=== PATIENT | female | born 1950 | race Caucasian/White ===

== ENCOUNTER 2022-02-05 13:45 | Outpatient (RCR) | payer MEDICARE, OTHER, SELFPAY | END 2022-09-23 15:56 | disposition home or self-care (01) | PROVIDERS: PCP Family Medicine; Visit Provider Family Medicine | DX: M62.81 Muscle weakness (generalized) (principal); Z51.89 Encounter for other specified aftercare | CPT/HCPCS: 97110 ==

== ENCOUNTER 2022-06-10 13:07 | Outpatient (CLI) | payer MEDICARE, OTHER, SELFPAY ==
--- NOTE | 2022-06-10 13:20 | CRLHL7_ITS ---
For Patients: As a result of the Cures Act, medical imaging exams and procedure reports are released immediately into your electronic medical record. You may view this report before your referring provider. If you have questions, please contact your health care provider. BILATERAL SCREENING MAMMOGRAM WITH COMPUTER-AIDED DETECTION AND TOMOSYNTHESIS TECHNIQUE: CC, MLO and implant-displaced views were obtained. These mammographic images have been obtained using full-field digital technique. These mammographic images were interpreted with the benefit of computer-aided detection. Breast tomosynthesis was used in this interpretation. COMPARISON FILM: 03/14/21, 03/13/19, 03/08/18. FINDINGS: The breasts are heterogeneously dense, which may obscure small masses. IMPRESSION: There is no radiographic evidence for malignancy. ASSESSMENT: BI-RADS Category 2: Benign RECOMMENDATION: Routine screening mammogram in 1 year. A lay language report of this examination will be provided to the patient. LUISITO ADAMS M.D. Diagnostic Radiologist [email or web address] Transcribed: 06/11/2022, 2:[address]/Dictated by: Luisito Adams MD @ 06/11/2022 11:19:[address]/Dictated by: Luisito Adams MD @ 06/11/2022 11:19:00 AM (Electronically Signed)
== END 2022-06-10 13:08 | disposition home or self-care (01) ==
LOC: MAMMO 13:08
PROVIDERS: PCP Family Medicine; Visit Provider Family Medicine
DX: Z12.31 Encounter for screening mammogram for malignant neoplasm of breast (principal); R92.2 Inconclusive mammogram
CPT/HCPCS: 77063; 77067

== ENCOUNTER 2022-07-06 16:00 | Observation (INO) | payer MEDICARE, OTHER, SELFPAY ==
--- NOTE | 2022-07-06 12:16 | W.ANESCHARGE ---
Anesthesia Charges Start Date/Time Anesthesia Start Date: 07/06/22 Anesthesia Start Time: 12:29 Stop Date/Time Anesthesia Stop Date: 07/06/22 Anesthesia Stop Time: 13:19 Summary Extremes of Age - Over 70 or under 1: MDA
--- NOTE | 2022-07-06 13:29 | W.ANESCHARGE ---
Anesthesia Charges Start Date/Time Anesthesia Start Date: 07/06/22 Anesthesia Start Time: 12:29 Stop Date/Time Anesthesia Stop Date: 07/06/22 Anesthesia Stop Time: 13:19
--- NOTE | 2022-07-06 13:55 | CRLHL7_ITS ---
For Patients: As a result of the Century Cures Act, medical imaging exams and procedure reports are released immediately into your electronic medical record. You may view this report before your referring provider. If you have questions, please contact your health care provider. Indication: Aspiration Comparison: None available. Technique: Single AP view chest Findings: There is hyperinflation and chronic interstitial change. Calcified radiopaque breast implants project over the lung bases somewhat limiting evaluation of the lower lobes. There is suggestion of masslike consolidation within the peripheral left lung base which may represent a pulmonary mass lesion versus developing infiltrate. There is no pneumothorax or pleural effusion. The cardiomediastinal silhouette is within normal limits. The bony thorax is grossly intact. Impression: Hyperinflation and chronic interstitial changes with somewhat limited evaluation of the lower lobes due to calcified breast implants. Suggestion of masslike consolidation in the left lung base which could represent a developing infiltrate; however, a pulmonary mass lesion is difficult to exclude and further evaluation with CT is recommended if there is persistent clinical concern. Dictated by Saeed Mcneill MD @ 07/06/2022 2:25:49 PM (Electronically Signed)
--- NOTE | 2022-07-06 14:00 | P.EN_ITS ---
Chart Event Note Date Seen: 07/06/22 Chart Event Note: Patient underwent surveillance colonoscopy today with mac anesthesia. Secondary to agitation she received increased sedation which resulted in her having copious secretions and decreasing her oxygen saturation to 86%. The secretions were suctioned promptly and the procedure was paused and the scope withdrawn. The patient was supported by anesthesia staff with jaw thrust and supplemental oxygen until she was more awake. Please see anesthesia note for details. Vital signs and oxygen saturation remained normal and the patient was comfortable and so the procedure was restarted and continued without incident. The patient received minimal additional sedation. In the recovery area she complained of throat soreness and was noted to have oxygen saturations in the mid 90s off of oxygen which is what her oxygen saturation was on presentation. When she fell asleep, however her oxygen level would dip into the high 80s. Auscultation of her lungs revealed clear lungs on the right. On the left she had deep inspiratory crackles with some expiratory w heezes noted diffusely. The patient denied shortness of breath. Chest x-ray was obtained and shows likely a left middle lobe infiltrate versus possible mass. A nebulizer was administered with improvement in her oxygen saturation. Upon further questioning, she does not have anybody staying with her tonight. Because of this I do not feel that it is safe to discharge her home. We discussed admission for observation in the hospital. I will start antibiotics though I explained to the patient that aspiration pneumonitis does not always turn into pneumonia, however given her history of COPD and symptoms, I think antibiotics are warranted. I discussed the patient with the hospitalist as well as the anesthesia department.
[2022-07-06] MEDS: ALBUTEROL SULFATE 2.5 MG/3 ML VIAL.NEB NEB (14:38)
[2022-07-06 15:27] VITALS: BP 153/85; PULSE 108; RESP 24; TEMP 36.4; O2SAT 88; O2SAT 90; BMI 25.6
[2022-07-06 15:56] VITALS: BP 153/85; PULSE 102; RESP 24; TEMP 36.6; O2SAT 90
[2022-07-06 16:00] VITALS: O2SAT 90
[2022-07-06 16:24] LABS: HCO3 VBG 28 mmol/L (21-28); PCO2 VBG 48 mmHG (40-50); PO2 VBG 25.6 mmHG (25-47); pH VBG 7.379 (7.32-7.43)
[2022-07-06 16:30] LABS: Basophils Percent Auto 0.2 % (0.0-3.0); Eosinophils Percent Auto 0.1 % (0.0-7.0); Hematocrit 43.4 % (33.0-51.0); Hemoglobin* 14.3 gm/dL (12.0-16.0); Immature Granulocytes Pct Auto 0.2 %; Lymphocytes Percent Auto 6.2 % (20-44); Mean Corpuscular HGB Conc 33 gm/dL (32-36); Mean Corpuscular Hemoglobin 29 pg (26-34); Mean Corpuscular Volume 87 fL (80-100); Monocytes Percent Auto 4.3 % (0.0-11.0); Platelet Count* 221 K/uL (140-440); RDW Coefficient of Variation % 13.9 % (11.5-15.5); Red Blood Count 4.98 m/uL (4.00-5.20); White Blood Count* 11.67 K/uL (4.50-11.00)
[2022-07-06 16:31] LABS: Slide Review Reflex No
[2022-07-06 16:40] LABS: Chloride* 107 mmol/L (96-114); Sodium* 141 mmol/L (135-149)
[2022-07-06 16:41] LABS: Albumin* 4.2 g/dL (3.3-5.0); Potassium* 4.1 mmol/L (3.6-5.1)
[2022-07-06 16:44] LABS: Alanine Aminotransferase* 19 U/L (4-35); Alkaline Phosphatase* 92 U/L (40-150); Aspartate Amino Transferase* 40 U/L (12-35); Bilirubin Total* 0.6 mg/dL (0.1-1.5); Blood Urea Nitrogen* 12 mg/dL (7-30); Carbon Dioxide* 26 mmol/L (20-32); Creatinine* 0.7 mg/dL (0.5-1.5); Est. Creatinine Clearance* 41.45; Estimated Glomerular Filt Rate 91 ml/min; Glucose* 97 mg/dL (60-115); Total Protein* 6.7 g/dL (6.0-8.3)
[2022-07-06 16:45] LABS: Calcium* 9.9 mg/dL (8.4-10.6)
[2022-07-06 16:47] LABS: C Reactive Protein* 1.3 mg/dL (0.5-1.0)
[2022-07-06] MEDS: PANTOPRAZOLE SODIUM 40 MG INJ IVP (17:27)
[2022-07-06] MEDS: PIPERACILLIN/TAZOBACTAM 3.375 GM in 0.9 % SODIUM CHLORIDE Mini-bag 100 ML IVPB ×2 (17:28→22:11)
--- NOTE | 2022-07-06 17:34 | P.IMHP_ITS ---
Hospitalist- H&P: HPI History of Present Illness Date Seen: 07/06/22 Chief complaint: History of colonic polyps Narrative: Radha Bronson is a 72 year old female admitted to the hospital from endoscopy clinic due to concerns about aspiration pneumonia. Patient underwent colonoscopy today with Dr. Camarena. No apparent complications except during the time she was sedated with anesthesia she had copious secretions requiring suctioning. After the procedure she appear to need some oxygen, especially when she fell asleep. She was noted to have crackles in her left lung cornejo after the surgery as well. Chest x-ray showed an infiltrate in the left lung mid field. This was suspected to be due to an aspiration event. Patient has underlying COPD as well. Since waking up from anesthesia she reports that she has had a sense of feeling hot and cold. She is quite diaphoretic and did saturate her gown with sweat.. Before her colonoscopy today she reports she was generally doing well. Review of Systems Narrative: No other recent illness. [facility] Medical History Chronic gastroesophageal reflux disease Chronic obstructive pulmonary disease Depression Dyslipidemia Fuchs' corneal dystrophy Gross hematuria (2013) History of colonic polyps History of vitamin D deficiency Urolithiasis Surgical History History of breast augmentation (1995) History of cataract extraction (09/2017) History of colonoscopy (06/07/19) History of cornea transplant (09/2017) History of cystoscopy (2014) History of hysterectomy with bilateral oophorectomy (1994) Normal cystoscopy (08/2016) Family History Son Alcoholism Mother Anxiety disorder Paternal Grandmother Breast cancer, Onset Age: 50 Sister Cervical cancer Myocardial infarction, Onset Age: 54 Aunt Heart disease Uncle Heart disease Other Dementia Thyroid disease Social History (Updated 07/06/22 @ 17:48 by Jae Villalpando MD) Narrative: Lives alone at [facility]. , retired from office job, 3 kids, has patience [place] ex-smoker- hx 40 pack years does not drink alcohol exercise involving walking- walks dog 20-25 min daily Highest level of school completed/degree received: GED or equivalent Smoking Status: Former smoker How often do you have a drink containing alcohol: never AUDIT-C Alcohol total score: 0 Caffeine: Yes (coffee) Little interest or pleasure in doing things: several days Feeling down, depressed, or hopeless: several days service: No Meds Home Medications and Allergies Home Medications Medication Instructions Recorded Confirmed Type albuterol sulfate 90 mcg/actuation 2 puff inhalation Q4-6H PRN 12/16/21 07/06/22 History aerosol inhaler cyclosporine 0.05 % eye drops 1 drp ophthalmic (eye) BID 12/16/21 07/06/22 History multivitamin with minerals 1 tab PO QDAY 12/16/21 07/06/22 History (Hair,Skin and Nails tablet) polyvinyl alcohol 1.4 % eye drops 1 drp ophthalmic (eye) Q4H PRN 12/16/21 07/06/22 History prednisolone acetate 1 % eye 1 drp ophthalmic (eye) DAILY 12/16/21 07/06/22 History drops,suspension fluticasone fur. 100 mcg-umeclid 1 inh inhalation QDAY 12/17/21 07/06/22 History 62.5 mcg-vilant 25 mcg inhalat.powder (Trelegy Ellipta) Allergies Allergy/AdvReac Type Severity Reaction Status Date / Time latex Allergy Intermediate Rash Verified 06/24/22 14:34 Dairy AdvReac Intermediate muscle and Uncoded 06/24/22 14:34 joint pain Exam Narrative: Exam Narrative: She is alert and appears in no distress. She gives her own history. She does have a fairly large emesis of green tinged clear fluid when I am examining her. Eyes are normal. Oropharynx normal. Neck is supple without mass or adenopathy. Respirations with diminished breath sounds on the right but otherwise clear without wheezing. On the left she has crackles diffusely anteriorly and posteriorly. Cardiovascular: S1, S2, regular rate and rhythm. No murmur gallop or rub. Abdomen: Bowel sounds active. Abdomen is soft without tenderness or mass. She does get nauseated during the abdominal exam. Extremities with intact pulses and sensation. Good capillary refill in good perfusion. Const: Vital Signs, click to edit/add: Vital Signs - 24 hr 07/06/22 15:27 07/06/22 15:27 07/06/22 15:56 Temperature 97.6 F 97.8 F Pulse Rate [Pulse Oximeter] 108 H 102 H Respiratory Rate 24 24 24 Blood Pressure [Le ft Arm] 153/85 H 153/85 H Pulse Oximetry 90 88 90 Oxygen Delivery Me thod Room Air Room Air Room Air Documenting provider has reviewed patient's vital signs: yes Hospitalist - H&P: Result Labs Labs: Short CBC 07/06/22 Range/Units 16:18 WBC 11.67 H (4.50-11.00) K/uL Hgb 14.3 (12.0-16.0) gm/dL Hct 43.4 (33.0-51.0) % Plt Count 221 (140-440) K/uL BMP 07/06/22 16:18 Sodium 141 Potassium 4.1 Chloride 107 Carbon Dioxide 26 BUN 12 Creatinine 0.7 Glucose 97 Calcium 9.9 Liver Function 07/06/22 Range/Units 16:18 Total Bilirubin 0.6 (0.1-1.5) mg/dL AST 40 H (12-35) U/L ALT 19 (4-35) U/L Alkaline Phosphatase 92 (40-150) U/L Albumin 4.2 (3.3-5.0) g/dL Assessment and Plan Assessment and plan (1) Aspiration into lower respiratory tract: Problem comment: Abnormal lung exam, hypoxia, abnormal chest x-ray all likely represent aspiration into the left lung cornejo. Because she has significant symptoms of illness will treat with antibiotics Status: Acute (2) Chronic gastroesophageal reflux disease: Status: Chronic (3) Chronic obstructive pulmonary disease: Problem comment: did see pump assembler, stage 2, Trelegy Status: Chronic (4) Vomiting: Problem comment: Continue to assess. Probably related to acute illness but may have other issues contributing to vomiting. Status: Acute Plan Admit for IV antibiotics, IV fluids, antiemetics, monitoring of cardio respiratory status. Total time spent today is 70 minutes, 45 minutes in coordination of care and discussing with patient other providers ongoing evaluation management of aspiration pneumonia
[2022-07-06] MEDS: IPRAT-ALBUT 0.5-2.5 MG/3 ML NEB 1 NEB IH (18:51)
[2022-07-06] MEDS: LACTATED RINGERS 1000 ML 500 ML IV (18:51)
[2022-07-06] MEDS: SERTRALINE 100 MG TABLET PO (18:51)
[2022-07-06 19:00] VITALS: BP 115/67; PULSE 115; RESP 20; TEMP 37.9; O2SAT 88
--- NOTE | 2022-07-06 19:53 | PC.NURSE ---
Nursing Care Hours: [id number] Pt this shift arrived from same day surgery after a colonoscopy where she is suspected to have aspirated during the procedure. Pt does state she has frequent heart burn and during assessment with hospitalist, pt vomited about 100ml clear-green bile. Immediately after pt had to use restroom for a loose BM. Audible wet breath sounds heard without stethoscope, coarse crackles to L lung, diminished base, clear R lung. spO2 remains above 88% on RA. Alert, oriented, and pleasant. IV from [facility] in R AC red and irritated, dc'd and new IV inserted R wrist with one attempt. Chicken broth ordered.
[2022-07-06] MEDS: SODIUM CHLORIDE 0.9 % (FLUSH) 10 ML SYRINGE 5 ML IVF (22:12)
[2022-07-06] MEDS: BENZOCAINE/MENTHOL 1 EACH LOZENGE MUCOUS MEM (22:12)
[2022-07-06 23:00] VITALS: BP 116/59; PULSE 116; RESP 18; TEMP 37.5; O2SAT 86
[2022-07-06] MEDS: LACTATED RINGERS 1000 ML 1,000 ML 125 ML IV (23:12)
[2022-07-07] VITALS: O2SAT 86
[2022-07-07] MEDS: IPRAT-ALBUT 0.5-2.5 MG/3 ML NEB 1 NEB IH ×3 (00:15→11:33)
--- NOTE | 2022-07-07 01:34 | PC.NURSE ---
Primary nurse Teresa has updated [facility] telehealth with current vital signs and oxygen sats 85-89% RA. Boiler House Operator discussed patient flagging for sepsis with Wilbur. Continue with current antibiotic orders at this time and no new orders.
[2022-07-07 02:59] VITALS: BP 115/62; PULSE 112; RESP 16; TEMP 37.5; O2SAT 91
[2022-07-07] MEDS: PIPERACILLIN/TAZOBACTAM 3.375 GM in 0.9 % SODIUM CHLORIDE Mini-bag 100 ML IVPB ×2 (04:24→09:57)
--- NOTE | 2022-07-07 05:19 | PC.NURSE ---
END OF SHIFT NOTE: PT PLEASANT AND COOPERATIVE. PT DENIES CP, SOB, N/V. AMBULATES INDEPENDENTLY/SBA WHEN REQUESTED. HR TACHY, ELEVATED TEMP 99.5-100.3, BP 115-116/59-67, RR 16-20, SPO2 85-88%, 90% ON 1L NC.?PT TRIGGERING SEPSIS; CHARGE NURSE AND JD UPDATED; NO NEW ORDERS. PT PLACED ON 1L O2 VIA NC TO MAINTAIN SATS >88%. PT A&O x4. PT FEELING BETTER THIS MORNING AFTER REST.
[2022-07-07 06:57] LABS: Chloride* 109 mmol/L (96-114)
[2022-07-07 06:58] LABS: Potassium* 3.9 mmol/L (3.6-5.1); Sodium* 140 mmol/L (135-149)
[2022-07-07 07:00] LABS: Creatinine* 0.8 mg/dL (0.5-1.5); Est. Creatinine Clearance* 41.45; Estimated Glomerular Filt Rate 78 ml/min
[2022-07-07 07:01] LABS: Blood Urea Nitrogen* 10 mg/dL (7-30); Carbon Dioxide* 27 mmol/L (20-32); Glucose* 90 mg/dL (60-115)
[2022-07-07 07:02] LABS: Calcium* 9.4 mg/dL (8.4-10.6)
[2022-07-07 07:04] LABS: C Reactive Protein* 6.7 mg/dL (0.5-1.0)
[2022-07-07 07:45] VITALS: BP 122/58; PULSE 105; RESP 18; TEMP 37; O2SAT 91
--- NOTE | 2022-07-07 07:53 | CRLHL7_ITS ---
For Patients: As a result of the Century Cures Act, medical imaging exams and procedure reports are released immediately into your electronic medical record. You may view this report before your referring provider. If you have questions, please contact your health care provider. INDICATION: Follow up aspiration COMPARISON: July 06, 2022 TECHNIQUE: Single view of the chest was acquired FINDINGS: TUBES AND LINES: None. HEART AND MEDIASTINUM: The heart size is normal. The mediastinal contour appears normal for patient age. LUNGS AND PLEURAL SPACES: Airspace disease noted primarily l in the eft midlung and left base. Most of the opacity overlying the right base appears to be breast attenuation.Similar overall appearance to the prior study OSSEOUS STRUCTURES: Age-appropriate appearance. No acute focal finding. IMPRESSION: Airspace disease noted primarily in the left mid lung and the left base. Most of the opacity overlying the right base appears to be breast attenuation rather than air space disease. Similar overall appearance to the prior study Dictated by Junior Tristan MD @ 07/07/2022 8:22:08 AM (Electronically Signed)
[2022-07-07 08:00] VITALS: O2SAT 91
[2022-07-07] MEDS: SERTRALINE 100 MG TABLET PO (09:55)
[2022-07-07] MEDS: FAMOTIDINE 20 MG TABLET PO (09:55)
--- NOTE | 2022-07-07 10:31 | PM.IMPN1 ---
Progress Note: A&P Assessment and plan (1) Aspiration into lower respiratory tract: Problem details: hypoxic overnight (may be a baseline with her COPD hx); off oxygen all day. has rec'd zosyn - could go home on Augmentin/nebs. Status: Acute (2) Depression: Problem details: stable Status: Chronic (3) Dyslipidemia: Problem details: stable Status: Chronic (4) Chronic obstructive pulmonary disease: Problem details: did see assistant store manager operations, stage 2, Trelegy Status: Chronic Subjective Date Seen: 07/07/22 Interval history: HOSPITALIST DISCHARGE SUMMARY ATTENDING PHYSICIAN: Isis Carroll MD FINAL DIAGNOSIS: Aspiration event during colonoscopy 07/06/2022 Left middle lobe and left lower lobe pneumonitis COPD HOSPITAL FOLLOWUP ISSUES: Repeat chest x-ray in 2-4 weeks to assure clearance of the left middle lobe and left lower lobe findings REFERRALS WHILE ADMITTED: None REFERRALS AFTER DISCHARGE: None BRIEF HOSPITAL COURSE: Radha aspirated during her colonoscopy for routine surveillance on 07/06/2022. She was kept overnight very to hypoxia, living alone. She needed about 1 L of nasal cannula oxygen overnight. However we wonder if there is some baseline nocturnal hypoxia related to her COPD. During hospital day 2 she was able to ambulate the halls while her sats did drop to a low of 89% they came right back up with rest and with a nebulizer stayed between 94 96%. She was afebrile at discharge. She was tolerating a regular diet. She had received several doses of Zosyn. We are transitioning her to oral Augmentin. I am also a clipping her with a nebulizer and DuoNebs for the next few days as this has seemed very beneficial for her. SUBSTANTIVE NOTATIONS ON IMAGING, LAB, MICROBIOLOGY/PATHOLOGY STUDIES: Chest x-ray on 07/07 22 Airspace disease noted primarily in the left mid lung and the left base. Most of the opacity overlying the right base appears to be breast attenuation rather than air space disease. Similar overall appearance to the prior study DISCHARGE MEDICATIONS: See Reconciled list - SIGNIFICANT CHANGES: augmentin course nebulizer added for dyspnea and wheeze REVIEW OF SYSTEMS No new chest pain or dyspnea Pain controlled No voiding difficulties Tolerating diet challenge PHYSICAL EXAM: CONSTITUTIONAL: Alert. Insightful. VITAL SIGNS: see record. HEENT: Normocephalic, atraumatic. PERRL, EOMI, conjunctivae pink, no scleral icterus. Ears and nose externally normal. Pharynx normal. NECK: No JVD. No carotid bruit, no thyromegaly, no adenopathy. CHEST: Left lower lung cornejo reveal some soft crackles but otherwise there was no wheezing. HEART: S1 and S2 normal. Edema ABDOMEN: Soft, nontender. Normal bowel sounds. MUSCULOSKELETAL: No gross joint deformity or swelling. NEURO: Cranial nerves intact. Grossly intact. No asymmetric findings. SKIN: No rashes, petechiae, concerning changes PSYCHIATRIC: Mood euthymic. DISPOSITION: Patient is also requesting discharge secondary to dog being alone in her apartment and she wants to check on her dog. She also has a lot of supportive friends and neighbors. Precautions for leaving were discussed, patient is agreeable to discharge. Time spent on discharge 37 minutes. Previously earlier in the day: Daily Progress Note - Hospital Medicine Day #: 1 CC: aspiration event during colonoscopy 07/06/22 ZOSYN day 2 OVERNIGHT UPDATES FROM STAFF & MED, LAB, IMAGING UPDATES Objective: Vitals: see above Lungs: Clear. Cardiac: S1S2. Disposition/Potential discharge - Likely to return to previous living situation. Total time is 35 minutes with greater than 50% spent in counseling and coordination of care. T-max 100.3? last evening. Current temperature 99.5? Blood pressure 115/62 Pulse 112 she has been tachycardic since her arrival yesterday afternoon at 3:30 pm Respiratory rate though is only 16. Pulse ox 91% Overnight she dipped to 86% She is currently on 1 L nasal cannula oxygen Her leukocytosis yesterday was 11.67, this was not redrawn this morning. Her CRP is up trending from 1.3-6.7. Her electrolytes and renal function are normal. Her chest x-ray this morning shows about the same findings with left middle lobe lower lobe infiltrate likely related to her aspiration event yesterday during her colonoscopy. She remains on Zosyn There were no blood cultures drawn Exam Const: Vital Signs, click to edit/add: Vital Signs - 24 hr 07/06/22 15:27 07/06/22 15:27 07/06/22 15:56 Temperature 97.6 F 97.8 F Pulse Rate [Pulse Oximeter] 108 H 102 H Respiratory Rate 24 24 24 Blood Pressure [Le ft Arm] 153/85 H 153/85 H Pulse Oximetry 90 88 90 Oxygen Delivery Me thod Room Air Room Air Room Air Oxygen Flow Rate 07/06/22 16:00 07/06/22 19:00 07/06/22 23:00 Temperature 100.3 F H Pulse Rate [Pulse Oximeter] 115 H 116 H Respiratory Rate 20 18 Blood Pressure [Le ft Arm] 115/67 Pulse Oximetry 90 88 Oxygen Delivery Me thod Room Air Oxygen Flow Rate 07/06/22 23:00 07/07/22 00:00 07/07/22 02:59 Temperature 99.5 F 99.5 F Pulse Rate [Pulse Oximeter] 116 H 112 H Respiratory Rate 18 16 Blood Pressure [Le ft Arm] 116/59 L 115/62 Pulse Oximetry 86 L 86 L 91 Oxygen Delivery Me thod Room Air Nasal Cannula Oxygen Flow Rate 1 Labs Labs: Laboratory Results - last 24 hr 07/06/22 07/06/22 07/06/22 16:18 16:18 16:18 WBC 11.67 H RBC 4.98 Hgb 14.3 Hct 43.4 MCV 87 MCH 29 MCHC 33 RDW Coeff of Nargis 13.9 Plt Count 221 Neut % (Auto) 89.0 H Lymph % (Auto) 6.2 L Donley % (Auto) 4.3 Eos % (Auto) 0.1 Baso % (Auto) 0.2 Neut # (Auto) 10.40 H Lymph # (Auto) 0.70 L Donley # (Auto) 0.50 Eos # (Auto) 0.00 Baso # (Auto) 0.00 VBG pH 7.379 VBG pCO2 48 VBG pO2 25.6 VBG HCO3 28 Sodium 141 Potassium 4.1 Chloride 107 Carbon Dioxide 26 BUN 12 Creatinine 0.7 Estimated Creat Clear 41.45 Estimated GFR 91 Glucose 97 Lactate 1.0 Calcium 9.9 Total Bilirubin 0.6 AST 40 H ALT 19 Alkaline Phosphatase 92 C-Reactive Protein 1.3 H Total Protein 6.7 Albumin 4.2 07/07/22 05:55 WBC RBC Hgb Hct MCV MCH MCHC RDW Coeff of Nargis Plt Count Neut % (Auto) Lymph % (Auto) Donley % (Auto) Eos % (Auto) Baso % (Auto) Neut # (Auto) Lymph # (Auto) Donley # (Auto) Eos # (Auto) Baso # (Auto) VBG pH VBG pCO2 VBG pO2 VBG HCO3 Sodium 140 Potassium 3.9 Chloride 109 Carbon Dioxide 27 BUN 10 Creatinine 0.8 Estimated Creat Clear 41.45 Estimated GFR 78 Glucose 90 Lactate Calcium 9.4 Total Bilirubin AST ALT Alkaline Phosphatase C-Reactive Protein 6.7 H Total Protein Albumin
[2022-07-07 10:46] LABS: Basophils Absolute Auto 0.04 K/uL (0.00-0.30); Basophils Percent Auto 0.4 % (0.0-3.0); Eosinophils Absolute Auto 0.01 K/uL (0.00-0.50); Eosinophils Percent Auto 0.1 % (0.0-7.0); Hematocrit 39.1 % (33.0-51.0); Hemoglobin* 12.8 gm/dL (12.0-16.0); Immature Granulocytes Abs Auto 0.01 K/uL (0.00-0.30); Immature Granulocytes Pct Auto 0.1 %; Lymphocytes Percent Auto 15.1 % (20-44); Mean Corpuscular HGB Conc 33 gm/dL (32-36); Mean Corpuscular Hemoglobin 29 pg (26-34); Mean Corpuscular Volume 88 fL (80-100); Neutrophils Percent Auto 77.3 % (42.0-72.0); Platelet Count* 211 K/uL (140-440); RDW Coefficient of Variation % 14.3 % (11.5-15.5); Red Blood Count 4.47 m/uL (4.00-5.20); White Blood Count* 10.46 K/uL (4.50-11.00)
[2022-07-07 10:59] LABS: Slide Review Reflex No
[2022-07-07 11:13] LABS: Procalcitonin* 0.38 ng/mL (<0.50)
[2022-07-07 11:13] LABS: Procalcitonin* 0.06 ng/mL (<0.50)
--- NOTE | 2022-07-07 12:22 | PC.NURSE ---
shift note: ambulated pt in ahuja approx 200ft. pt sats monitored while ambulating. start of activity sats 90-91%RA, HR =105. As pt ambulated and talked lowest sats 88% on RA with highest HR 112. Pt denied sob or chest pain. Pt did have some noted sob at the end of ambuation. Dr. Carroll notified
[2022-07-07 12:29] VITALS: RESP 18; TEMP 37
--- NOTE | 2022-07-07 14:00 | PM.EN ---
Chart Event Note Chart Event Note: Patient gets diarrhea from Augmentin, requesting a different antibiotic upon discharge. Changed to Moxifloxacin, sent to preferred pharmacy.
--- NOTE | 2022-07-07 14:02 | P.GSPN_ITS ---
Subjective Subjective Date Seen: 07/07/22 Interval history: Radha feels much better today. She states that she continues to feel short of breath. She has been up ambulating and off of oxygen. She told me that she has significant issues with reflux. She feels as though it has been worse since she moved to [place] and that it is may be related to weight gain. She has not had an upper endoscopy. She does take an H2 jackson daily but this is no longer helping. Exam Narrative: Exam Narrative: General: No acute distress Respiratory: Breathing nonlabored on room air. Patient still with crackles on the left. Productive cough noted. Const: Vital Signs, click to edit/add: Vital Signs - 24 hr 07/06/22 15:27 07/06/22 15:27 07/06/22 15:56 Temperature 97.6 F 97.8 F Pulse Rate [Pulse Oximeter] 108 H 102 H Respiratory Rate 24 24 24 Blood Pressure [Le ft Arm] 153/85 H 153/85 H Pulse Oximetry 90 88 90 Oxygen Delivery Me thod Room Air Room Air Room Air Oxygen Flow Rate 07/06/22 16:00 07/06/22 19:00 07/06/22 23:00 Temperature 100.3 F H Pulse Rate [Pulse Oximeter] 115 H 116 H Respiratory Rate 20 18 Blood Pressure [Le ft Arm] 115/67 Pulse Oximetry 90 88 Oxygen Delivery Me thod Room Air Oxygen Flow Rate 07/06/22 23:00 07/07/22 00:00 07/07/22 02:59 Temperature 99.5 F 99.5 F Pulse Rate [Pulse Oximeter] 116 H 112 H Respiratory Rate 18 16 Blood Pressure [Le ft Arm] 116/59 L 115/62 Pulse Oximetry 86 L 86 L 91 Oxygen Delivery Me thod Room Air Nasal Cannula Oxygen Flow Rate 1 07/07/22 07:45 07/07/22 07:45 07/07/22 08:00 Temperature 98.6 F Pulse Rate [Pulse Oximeter] 105 H Respiratory Rate 18 Blood Pressure [Le ft Arm] 122/58 L Pulse Oximetry 91 91 91 Oxygen Delivery Me thod Room Air Room Air Oxygen Flow Rate 07/07/22 12:29 Temperature 98.6 F Pulse Rate [Pulse Oximeter] Respiratory Rate 18 Blood Pressure [Le ft Arm] Pulse Oximetry Oxygen Delivery Me thod Oxygen Flow Rate Progress Note: A&P Assessment and plan (1) Aspiration into lower respiratory tract: Problem details: hypoxic overnight (may be a baseline with her COPD hx); off oxygen all day. has rec'd zosyn - could go home on Augmentin/nebs. Status: Acute (2) Chronic gastroesophageal reflux disease: Status: Chronic (3) Chronic obstructive pulmonary disease: Problem details: did see ichthyologist, stage 2, Trelegy Status: Chronic Plan Patient is a 72-year-old female with aspiration pneumonitis after colonoscopy with monitored anesthesia care. Today she is doing well. I explained the rationale behind sending her home on antibiotics given her symptoms and her history of COPD though not all pneumonitis does develop into pneumonia. She is going to follow up with her primary care doctor. She and I also discussed reflux. I recommend that she discuss with her primary care doctor about this as she may need to increase her medication. Consideration can also be had for upper endoscopy or also an esophagram to evaluate for hiatal hernia which cert ainly can lead to reflux as well. She may discharge home as long as her pulmonary status is stable again I recommend treating with antibiotics given her COPD history and she will follow up if she has worsening symptoms.
--- NOTE | 2022-07-07 17:19 | PC.NURSE ---
shift note: pt up indept in room. vss stable. pt maintains sats 88-90% on RA. LS with ckls to LLL and insp wheezing to RUL. Pt denies sob or chest pain. IV dc'd intact. Reviewed dc instructions and copies sent with pt. Reviewed personal belongings. Belongings sent with pt at dc.
== END 2022-07-07 14:30 | disposition home or self-care (01) ==
LOC: OP CLINIC 17:07 → MEDSURG 17:07
PROVIDERS: Family Medicine; Admitting Provider Surgery; PCP Family Medicine; Visit Provider Family Medicine
DX: T17.800A Unspecified foreign body in other parts of respiratory tract causing asphyxiation, initial encounter (principal); R91.8 Other nonspecific abnormal finding of lung field; K21.9 Gastro-esophageal reflux disease without esophagitis; J44.9 Chronic obstructive pulmonary disease, unspecified; F32.A Depression, unspecified; E78.5 Hyperlipidemia, unspecified; R11.10 Vomiting, unspecified; Z87.891 Personal history of nicotine dependence; Z86.010 Personal history of colon polyps; R00.0 Tachycardia, unspecified; R06.02 Shortness of breath
CPT/HCPCS: 36415; 45380; 71045; 80048; 80053; 811; 82803; 83605; 84145; 84146; 85025; 86140; 88305; 94640; 94761; 99100; A9270; C9113; G0378; G0379; J2543; J2704; J7120

== ENCOUNTER 2022-09-08 10:03 | Outpatient (CLI) | payer MEDICARE, OTHER, SELFPAY ==
--- NOTE | 2022-09-08 10:15 | CRLHL7_ITS ---
For Patients: As a result of the Century Cures Act, medical imaging exams and procedure reports are released immediately into your electronic medical record. You may view this report before your referring provider. If you have questions, please contact your health care provider. Technique: Double-contrast esophagram performed after the uneventful administration of effervescent crystals and thick barium followed by thin barium. Fluoroscopy time 49 seconds. Indication: Aspiration Comparison: None. Findings: Swallowing mechanism: Normal. Specifically, there was no laryngeal penetration or aspiration. Esophageal motility: Normal. Gastroesophageal reflux: None. Hernia: A tiny sliding hiatal hernia is present, considered incidental. Esophageal mucosa: Normal mucosa. No stricture or mass. Incidental duodenal diverticula noted. Impression: Tiny sliding hiatal hernia. No reflux or inflammatory change. Normal motility. No achalasia. Dictated by Luisito Lr MD @ 09/09/2022 6:24:14 AM (Electronically Signed)
== END 2022-09-08 10:04 | disposition home or self-care (01) ==
PROVIDERS: PCP Family Medicine; Visit Provider Family Medicine
DX: T17.800A Unspecified foreign body in other parts of respiratory tract causing asphyxiation, initial encounter (principal); K44.9 Diaphragmatic hernia without obstruction or gangrene
CPT/HCPCS: 74221

== ENCOUNTER 2022-11-16 09:13 | Outpatient (CLI) | payer MEDICARE, OTHER, SELFPAY | END 2022-11-16 09:14 | disposition home or self-care (01) | LOC: NFLDREF 18:38 | PROVIDERS: PCP Family Medicine; Referring Provider Family Medicine; Visit Provider Family Medicine | DX: E78.5 Hyperlipidemia, unspecified (principal); R53.83 Other fatigue | CPT/HCPCS: 80053; 80061 ==

== ENCOUNTER 2023-05-19 07:30 | Outpatient (CLI) | payer MEDICARE, OTHER, SELFPAY | END 2023-05-19 07:31 | disposition home or self-care (01) | LOC: NFLDREF 05-22 23:23 | PROVIDERS: PCP Family Medicine; Referring Provider Family Medicine; Visit Provider Family Medicine | DX: E78.2 Mixed hyperlipidemia (principal); R53.83 Other fatigue; M85.80 Other specified disorders of bone density and structure, unspecified site; Z11.59 Encounter for screening for other viral diseases | CPT/HCPCS: 80053; 80061; 82306; 86803 ==

== ENCOUNTER 2023-08-19 07:43 | Outpatient (CLI) | payer MEDICARE, OTHER, SELFPAY | END 2023-08-19 07:44 | disposition home or self-care (01) | LOC: NFLDREF 08-22 06:57 | PROVIDERS: PCP Family Medicine; Referring Provider Family Medicine; Visit Provider Family Medicine | DX: E78.5 Hyperlipidemia, unspecified (principal); R79.89 Other specified abnormal findings of blood chemistry; M81.0 Age-related osteoporosis without current pathological fracture | CPT/HCPCS: 80053; 80061; 82306 ==

== ENCOUNTER 2023-08-23 09:46 | Outpatient (CLI) | payer MEDICARE, OTHER, SELFPAY | END 2023-08-23 09:47 | disposition home or self-care (01) | LOC: NFLDREF 09:47 | PROVIDERS: PCP Family Medicine; Visit Provider Family Medicine | DX: E55.9 Vitamin D deficiency, unspecified (principal); E83.52 Hypercalcemia; R53.83 Other fatigue | CPT/HCPCS: 82310; 83970 ==

== ENCOUNTER 2023-09-06 07:36 | Outpatient (CLI) | payer MEDICARE, OTHER, SELFPAY ==
--- OUTSIDE RECORDS SUMMARY | 2023-09-09 08:00 | XMS_ITS | Clinical Summary ---
Author Name Unknown Organization [facility] Address [place], [place] [address] Care Team Providers Care Cleaner And Dyer Name Role Phone Sera Sweeney MD Primary [...] Department Care Team Description 07/06/2023 2:00 PM LANDSCAPE AND YARDWORK LABORER Office Visit [facility] [address] [place] [address] Simba Porter, DPHenrique Consult (Left foot pain) [...] Comments Blood Pressure 116/79 07/06/2023 2:25 PM LANDSCAPE AND YARDWORK LABORER Pulse 92 07/06/2023 2:25 PM LANDSCAPE AND YARDWORK LABORER Temperature - - Respiratory Rate - - Oxygen Saturation 97% 07/06/2023 2:25 PM LANDSCAPE AND YARDWORK LABORER Inhaled Oxygen Concentration - - Weight 66.3 kg (146 lb 3.2 oz) 07/06/2023 2:25 P M LANDSCAPE AND YARDWORK LABORER Height - - Body Mass Index - [...] 12/29/2021, 06/23/2021, Additional history exists Care Teams Cleaner And Dyer Relationship Specialty Start Date End Date Sera Sweeney MD [address] [place] [address] PCP - General Family Practice 07/06/23
== END 2023-09-06 07:37 | disposition home or self-care (01) ==
LOC: NFLDREF 09-09 07:58
PROVIDERS: PCP Family Medicine; Referring Provider Family Medicine; Visit Provider Family Medicine
DX: E78.5 Hyperlipidemia, unspecified (principal); E83.52 Hypercalcemia; M85.80 Other specified disorders of bone density and structure, unspecified site; M81.0 Age-related osteoporosis without current pathological fracture
CPT/HCPCS: 80048; 80053; 80061; 82306; 84443

== ENCOUNTER 2023-09-08 10:38 | Outpatient (CLI) | payer MEDICARE, OTHER, SELFPAY ==
--- OUTSIDE RECORDS SUMMARY | 2023-09-08 10:41 | XMS_ITS | Clinical Summary ---
Author Name Unknown Organization [facility] Address [place], [place] [address] Care Team Providers Care Supervisor Maintenance And Custodians Name Role Phone Sera Sweeney MD Primary Care Provider + Allergies Active Allergy Reactions Criticality Noted Date Comments Amoxicillin Nausea Only 07/06/2023 Abdominal pain Latex Rash 07/06/2023 Medications Medication Sig Dispensed Refills Start Date End Date Status albuterol HFA (PRO-AIR; VENTOLIN; PROVENTIL) 90 mcg/actuation inhaler INHALE 2 PUFFS BY MOUTH EVERY 4 TO 6 HOURS NEEDED FOR SHORTNESS OF BREATH OR WHEEZING 05/26/2023 Active Trelegy Ellipta 100-62.5-25 mcg inhaler 1 Puff once daily. 05/26/2023 Active lansoprazole (PREVACID) 30 mg capsule Take 30 mg by mouth once daily. 04/28/2023 Active Vios DIRECTED 07/20/2022 Active albuterol-ipratropium (DUONEB) (2.5-0.5 mg) in 3 mL NEBULIZATION solution INHALE 1 VIAL VIA NEBULIZER EVERY 6 HOURS 07/20/2022 Active prednisoLONE acetate 1% ophthalmic (ECONOPRED PLUS, PRED FORTE, OMNIPRED) suspension INSTILL TWICE DAILY BOTH EYES DIRECTED 10/24/2022 Active rosuvastatin (CRESTOR) 5 mg tablet Take 5 mg by mouth once daily. 05/26/2023 Active sertraline (ZOLOFT) 100 mg tablet Take 100 mg by mouth once daily. 04/28/2023 Active Encounters Date Type Department Care Team Description 07/06/2023 2:00 PM DESCRIPTIVE CATALOG LIBRARIAN Office Visit [facility] [address] [place] [address] Simba Porter, DPHenrique Consult (Left foot pain) 07/06/2023 Travel from Last 3 Months Social History Tobacco Use Types Packs/Day Years Used Date Smoking Tobacco: Never Assessed Sex and Gender Information Value Date Recorded Sex Assigned at Not on file Gender Identity Not on file Sexual Orientation Not on file Last Filed Vital Signs Vital Sign Reading Time Taken Comments Blood Pressure 116/79 07/06/2023 2:25 PM DESCRIPTIVE CATALOG LIBRARIAN Pulse 92 07/06/2023 2:25 PM DESCRIPTIVE CATALOG LIBRARIAN Temperature - - Respiratory Rate - - Oxygen Saturation 97% 07/06/2023 2:25 PM DESCRIPTIVE CATALOG LIBRARIAN Inhaled Oxygen Concentration - - Weight 66.3 kg (146 lb 3.2 oz) 07/06/2023 2:25 P M DESCRIPTIVE CATALOG LIBRARIAN Height - - Body Mass Index - - Plan of Treatment Health Maintenance Due Date Last Done Comments Tdap 1960 Depression screening for age 12+ 1961 BMI (ht and wt on same day) for age 18+ 1967 Hepatitis C screening for ag e 18-79 1967 Tetanus booster 1969 Colonoscopy through age 75 1994 Lipids for age 45-75 1994 Mammogram for age 45-75 1994 Zoster (shingles) series for age 50+ (1 of 2) 1999 DEXA/DXA scan for age 65+ 2014 Medicare Wellness for age 65+ 2014 Pneumococcal series for age 65+ (1 of 1 - PCV) 2014 Influenza for age 65+ 01/29/2024 COVID-19 vaccine series Completed 04/24/20, 12/29/2021, 06/23/2021, Additional history exists Care Teams Supervisor Maintenance And Custodians Relationship Specialty Start Date End Date Sera Sweeney MD [address] [place] [address] PCP - General Family Practice 07/06/23
--- NOTE | 2023-09-08 11:00 | NM_ITS ---
Patient: STANLEY HUBBARD Facility:?[facility] Patient ID:?[id number] Site Patient ID:?[id number]. Site :?[id number] Study:?NM-Thyroid SESTAMIBI PARATHYROID-09/08/2023 2:15:36 PM Ordering Physician:?IDANIA SHIRLEY Final Report: INDICATION: Hypercalcemia. TECHNIQUE: 25.7 mCi Tc-99m labeled Sestamibi. Planar images acquired immediately, at 90 minutes, and 3 hours after injection. FINDINGS: Initial uptake identified within the nasal and oral mucosa, submandibular salivary glands, parotid glands, and thyroid gland. Incomplete washout from the thyroid gland. There is a small amount of residual activity within the expected location of the inferior right and inferior left thyroid lobes. The pattern/appearance is nonspecific. It would be somewhat unusual to have subtle bilateral parathyroid adenomas. IMPRESSION : Incomplete washout from both inferior thyroid lobes. The pattern and appearance is somewhat nonspecific. Dictated by Jareth Jean MD @ 09/08/2023 6:07:40 PM Signed by:?Jareth Jean MD @09/08/2023 6:07:40 PM (Electronic Signature)
== END 2023-09-08 10:39 | disposition home or self-care (01) ==
LOC: NM 10:39
PROVIDERS: PCP Family Medicine; Visit Provider Family Medicine
DX: E83.52 Hypercalcemia (principal); E21.3 Hyperparathyroidism, unspecified
CPT/HCPCS: 78070; A9500

== ENCOUNTER 2023-09-29 14:33 | Outpatient (CLI) | payer MEDICARE, OTHER, SELFPAY ==
--- OUTSIDE RECORDS SUMMARY | 2023-09-29 14:35 | XMS_ITS | Clinical Summary ---
Author Name Unknown Organization [facility] Address [place], [place] [address] Care Team Providers Care Assistant Professor Surgical Technology Name Role Phone Sera Sweeney MD Primary [...] Department Care Team Description 07/06/2023 2:00 PM REPORTER Office Visit [facility] [address] [place] [address] Simba Porter, DPHenrique Consult (Left foot pain) [...] Comments Blood Pressure 116/79 07/06/2023 2:25 PM REPORTER Pulse 92 07/06/2023 2:25 PM REPORTER Temperature - - Respiratory Rate - - Oxygen Saturation 97% 07/06/2023 2:25 PM REPORTER Inhaled Oxygen Concentration - - Weight 66.3 kg (146 lb 3.2 oz) 07/06/2023 2:25 P M REPORTER Height - - Body Mass Index - [...] 12/29/2021, 06/23/2021, Additional history exists Care Teams Assistant Professor Surgical Technology Relationship Specialty Start Date End Date Sera Sweeney MD [address] [place] [address] PCP - General Family Practice 07/06/23
--- NOTE | 2023-09-29 15:00 | XR_ITS ---
Patient: STANLEY HUBBARD Facility:?[facility] Patient ID:?[id number] Site Patient ID:?[id number]. Site :?[id number] Study:?DEXA-Bone Density -09/29/2023 3:25:33 PM Ordering Physician:?SINGH AGUILAR Final Report: DXA BONE MINERAL DENSITY STUDY Reason for exam: Osteoporosis. Current height (in): 63. Weight (lb): 145. Menopause age: 44. Ethnicity: White. 1. Have you had a previous hip or vertebral fracture? No. 2. Have you had any fractures during your adult life which did not result from significant trauma (e.g., auto accident)? No. 3. Did either of your parents have a hip fracture? No. 4. Do you smoke? No. 5. Have you ever taken Glucocorticoids? No. 6. Do you have rheumatoid arthritis? No. 7. Do you have secondary osteoporosis? Yes. 8. Do you drink 3 or more alcoholic drinks per day? No. 9. Are you being treated for osteoporosis? No. 10. Have you ever taken any of the following medications: Actonel, Evista, Fosamax, Miacalcin, Reclast, Boniva, Forteo, HRT (i.e. estrogen/hormone therapy), Protelos, Prolia, Vitamin D, Calcium, other ? please specify. ANSWER: Yes, Fosamax and vitamin D. 11. Do you have any of the following medical conditions: Anorexia or bulimia, asthma or emphysema, end stage renal disease, hyperparathyroidism, any seizure disorders, cancer, inflammatory bowel diseases, hysterectomy, other ? please specify. ANSWER: Yes, hysterectomy and COPD. 12. What was your maximum height (inches)? 63.5. 13. Do you perform weight bearing exercise regularly? No. 14. Do you regularly consume dairy products? Yes. 15. Do you drink caffeinated beverages? Yes. 16. At what age did your period start? 16. 17. Are you premenopausal? No. 18. How many full term pregnancies have you had? 3. 19. Have you ever missed your period for more than 6 months in a row (not including or menopause)? No. TECHNIQUE: Bone mineral density study was performed using the [employer]. FINDINGS: The results of the study expressed as bone mineral density (BMD) are as follows: Lumbar spine L1 to L3: BMD: 0.718 g/cm2. T-score: -2.7. Z-score: -0.4. Neck Left: BMD: 0.448 g/cm2. T-score: -3.6. Z-score: -1.6. Right: BMD: 0.463 g/cm2. T-score: -3.5. Z-score: -1.4. Total Left: BMD: 0.539 g/cm2. T-score: -3.3. Z-score: -1.6. Right: BMD: 0.571 g/cm2. T-score: -3.0. Z-score: -1.3. IMPRESSION: Osteoporosis. Luisito Lr M.D. Diagnostic Radiologist [email or web address] COLTEN/sp D& Transcribed: 5:41 p.m. SP/Dictated by: Luisito Lr MD @ 09/30/2023 9:11:00 AM Signed by:?Luisito Lr MD @09/30/2023 6:08:47 PM (Electronic Signature)
== END 2023-09-29 14:34 | disposition home or self-care (01) ==
LOC: RAD 14:34
PROVIDERS: PCP Family Medicine; Visit Provider Internal Medicine Endocrinology, Diabetes & Metabolism
DX: M81.0 Age-related osteoporosis without current pathological fracture (principal)
CPT/HCPCS: 77080

== ENCOUNTER 2023-10-21 10:05 | Outpatient (REF) | payer MEDICARE, OTHER, SELFPAY ==
--- OUTSIDE RECORDS SUMMARY | 2023-10-21 10:09 | XMS_ITS | Clinical Summary ---
Author Organization [employer] [facility] Address [place], [place] [address] Care Team Providers Care Sustainable Development Policy Analyst Name Role Phone Sera Sweeney MD Primary [...] mg by mouth once daily. 04/28/2023 Active Social History Tobacco Use Types Packs/Day Years Used Date Smoking Tobacco: Never Assessed Sex and Gender Information Value Date Recorded Sex Assigned at Not on file Gender Identity Not on file Sexual Orientation Not on file Last Filed Vital Signs Vital Sign Reading Time Taken Comments Blood Pressure 116/79 07/06/2023 2:25 PM RENEWABLE ENERGY TRADER Pulse 92 07/06/2023 2:25 PM RENEWABLE ENERGY TRADER Temperature - - Respiratory Rate - - Oxygen Saturation 97% 07/06/2023 2:25 PM RENEWABLE ENERGY TRADER Inhaled Oxygen Concentration - - Weight 66.3 kg (146 lb 3.2 oz) 07/06/2023 2:25 P M RENEWABLE ENERGY TRADER Height - - Body Mass Index - [...] 12/29/2021, 06/23/2021, Additional history exists Care Teams Sustainable Development Policy Analyst Relationship Specialty Start Date End Date Sera Sweeney MD [address] [place] [address] PCP - General Family Practice 07/06/23
[2023-10-21 11:55] LABS: Chloride* 106 mmol/L (96-114); Potassium* 4.4 mmol/L (3.6-5.1); Sodium* 141 mmol/L (135-149)
[2023-10-21 11:58] LABS: Anion Gap 3 mEq/L (7-15); Blood Urea Nitrogen* 22 mg/dL (7-30); Carbon Dioxide* 32 mmol/L (20-32); Creatinine* 0.7 mg/dL (0.5-1.5); Estimated Glomerular Filt Rate 91 ml/min; Glucose* 91 mg/dL (60-115)
[2023-10-21 11:59] LABS: Calcium* 10.3 mg/dL (8.4-10.6)
[2023-10-21 12:10] LABS: PTH Intact* 65.6 pg/mL (14.2-75.2)
[2023-10-21 12:15] LABS: Free T4 Free Thyroxine* 1.21 ng/dL (0.70-1.85)
== END 2023-10-21 10:06 | disposition home or self-care (01) ==
LOC: NPINS 10:05
PROVIDERS: PCP Family Medicine; Visit Provider Internal Medicine Endocrinology, Diabetes & Metabolism
DX: E21.3 Hyperparathyroidism, unspecified (principal)
CPT/HCPCS: 80048; 83970; 84439; 84443

== ENCOUNTER 2024-04-30 08:09 | Outpatient (CLI) | payer MEDICARE, OTHER, SELFPAY ==
--- OUTSIDE RECORDS SUMMARY | 2024-04-30 08:12 | XMS_ITS | Clinical Summary ---
Author Organization [employer] [facility] Address [place], [place] [address] Care Team Providers Care Teacher Ballet Name Role Phone Sera Sweeney MD Primary [...] Comments Blood Pressure 116/79 07/06/2023 2:25 PM ANTIQUE CLOCK REPAIRER Pulse 92 07/06/2023 2:25 PM ANTIQUE CLOCK REPAIRER Temperature - - Respiratory Rate - - Oxygen Saturation 97% 07/06/2023 2:25 PM ANTIQUE CLOCK REPAIRER Inhaled Oxygen Concentration - - Weight 66.3 kg (146 lb 3.2 oz) 07/06/2023 2:25 P M ANTIQUE CLOCK REPAIRER Height - - Body Mass Index - [...] 65+ (1 of 1 - PCV) 2014 COVID-19 vaccine series (2023- season) 2024 04/24/2023, 12/29/2021, 06/23/2021, Additional history exists Influenza for age 65+ 01/29/2024 Care Teams Teacher Ballet Relationship Specialty Start Date End Date Sera Sweeney MD [address] [place] [address] PCP - General Family Practice 07/06/23
== END 2024-04-30 08:10 | disposition home or self-care (01) ==
LOC: NFLDREF 08:10
PROVIDERS: PCP Family Medicine; Visit Provider Family Medicine
DX: E21.3 Hyperparathyroidism, unspecified (principal); M81.0 Age-related osteoporosis without current pathological fracture; E55.9 Vitamin D deficiency, unspecified; E83.52 Hypercalcemia; E78.5 Hyperlipidemia, unspecified; R53.83 Other fatigue
CPT/HCPCS: 80053; 80061; 82306; 82397; 83970

== ENCOUNTER 2024-07-23 08:18 | Outpatient (CLI) | payer MEDICARE, OTHER, SELFPAY ==
--- NOTE | 2024-07-23 08:45 | CRLHL7_ITS ---
For Patients: As a result of the Century Cures Act, medical imaging exams and procedure reports are released immediately into your electronic medical record. You may view this report before your referring provider. If you have questions, please contact your health care provider. DIGITIAL DIAGNOSTIC BILATERAL MAMMOGRAM WITH COMPUTER-AIDED DETECTION AND TOMOSYNTHESIS, 07/23/2024 CLINICAL HISTORY: BILATERAL breast pain. COMPARISON: 06/10/22, 05/14/21, 03/13/19. TECHNIQUE: Digital BILATERAL mammogram in 4 projections with computer-aided detection. Tomosynthesis was used in this interpretation. Real-time ultrasound imaging of LEFT breast with imaging documentation. BREAST COMPOSITION: There are scattered areas of fibroglandular density. FINDINGS: 3D CC/MLO BILATERAL mammogram images performed along with implant displaced views. Implants are intact. No suspicious mass or architectural distortion. No adenopathy. Targeted LEFT breast ultrasound performed at 9 o`clock 6 cm from the nipple corresponding to a focal area of pain. No fluid about the implant. No solid mass. IMPRESSION: No suspicious findings. RECOMMENDATIONS: Clinical follow-up. Plastic surgery consultation should be considered for possible implant removal regarding the BILATERAL breast pain. A lay language report of this examination will be provided to the patient. BI-RADS Category 2. Benign Dictated by Luisito Lr MD @ 07/23/2024 10:13:26 AM MELIZA/aaron DW/Dictated by: Luisito Lr MD @ 07/23/2024 10:13:00 AM (Electronically Signed)
--- NOTE | 2024-07-23 09:15 | CRLHL7_ITS ---
For Patients: As a result of the Century Cures Act, medical imaging exams and procedure reports are released immediately into your electronic medical record. You may view this report before your referring provider. If you have questions, please contact your health care provider. PLEASE SEE BILATERAL BREAST DIAGNOSTIC MAMMOGRAM PERFORMED SAME DAY. CRL:sp SP/Dictated by: Luisito Lr MD @ 07/23/2024 10:13:00 AM (Electronically Signed)
== END 2024-07-23 08:19 | disposition home or self-care (01) ==
PROVIDERS: PCP Family Medicine; Visit Provider Family Medicine
DX: N64.4 Mastodynia (principal); Z98.82 Breast implant status
CPT/HCPCS: 76642; 77066; G0279

== ENCOUNTER 2024-08-30 12:39 | Outpatient (CLI) | payer MEDICARE, OTHER, SELFPAY ==
--- NOTE | 2024-08-30 13:00 | CRLHL7_ITS ---
For Patients: As a result of the Century Cures Act, medical imaging exams and procedure reports are released immediately into your electronic medical record. You may view this report before your referring provider. If you have questions, please contact your health care provider. BILATERAL BREAST MRI WITHOUT GADOLINIUM CLINICAL HISTORY: Mastodynia. Breast pain. INDICATION FOR BREAST MRI: Evaluate for breast silicone implant rupture. COMPARISON STUDIES: None CONTRAST: None. TECHNIQUE: The patient was positioned prone and scanned using a breast coil. Several imaging sequences of both breasts were obtained using 1-1.5 mm thick slices with no gap including T2-weighted and silicone selective sequences in axial and sagittal planes. BILATERAL BREAST MRI FINDINGS: BILATERAL retroglandular silicone implants. There is no extracapsular high signal or findings of intracapsular rupture seen. Multiple radial folds. There is a circumscribed lesion in the left hepatic lobe that demonstrates increased signal on the T2-weighted sequences. This is incompletely assessed and could be a cyst or hemangioma. IMPRESSIONS AND RECOMMENDATIONS: There are no findings for intra- or extracapsular rupture. Note: This study is designed to evaluate for implant rupture and is not a breast cancer screening study. ACR not applicable Imelda Snow M.D. Diagnostic/Breast Radiologist [email or web address] RICARDO/steve wilson/Dictated by: Imelda Snow MD @ 08/31/2024 11:23:00 AM (Electronically Signed)
== END 2024-08-30 12:40 | disposition home or self-care (01) ==
LOC: MRI 12:41
PROVIDERS: PCP Family Medicine; Visit Provider Family Medicine
DX: G89.29 Other chronic pain (principal); Z98.82 Breast implant status
CPT/HCPCS: 77047

== ENCOUNTER 2024-10-30 14:00 | Outpatient (RCR) | payer MEDICARE, OTHER, SELFPAY ==
--- NOTE | 2024-08-06 15:34 | PT.OPE ---
PT [facility] Eval PT [facility] Outpatient Eval Start: 08/06/24 12:58 Freq: Status: Active Protocol: Document 08/06/24 13:00 BALDEMAR (Rec: 08/06/24 13:01 BALDEMAR [id number]) E-signed By Cortes Plummer DPT, MS Physical Therapy Outpatient Evaluation Insurance Information Recert Due Date 11/04/24 Insurance Name Medicare B Medical Diagnosis Cervicalgia Treating Diagnosis Decreased B (L>R) CS flexibility and ROM, posture dysfunction, and B UE and CS weakness Subjective Subjective Pt is a 74 yo female who presents to PT with c/o B (L>R ) CS and upper back pain of insidious origin ~3 months ago . Sxs began during high levels of stress and anxiety while moving to a new apartment [place] to be closer to her daughter. Stress levels and intensity of CS sxs have improved significantly but neck, upper back and shoulder tightness and pain have persisted. She describes a long hx of high levels of anxiety and depression with her service dog and exercise providing significant relief. Pt avoided all unnecessary activity for years prior to getting a service dog for her anxiety, which provided a reason to walk and get out of her apartment, especially in the winter. PMH of COPD and she wants instruction in proper exercises to decrease pain levels and improve her activity levels since PT has been very helpful in the past. Lives in an apartment with 14 stairs, but can use elevator if she feels weak. AGGR factors: lifting above shoulder height, lifting her dog, reaching, driving, turning her head, sleeping. ALLEV factors: rest, warm shower. Pain Comments -11/06 Current Work Status Retired Precautions Therapy Limitations/Systems Review Not Limited Objective Functional Test Performed & Score NDI: 58% Assessment Assessment/Impression Objectively pt displays decreased B (L>R) CS flexibility and ROM, posture dysfunction, and B UE and CS weakness. Significant upper CS , UT and levator scap tightness found with testing. Posture dysfunction, guarding, stress and anxiety also contributing to sxs with good response to relaxation techniques and deep breathing today. Emphasized importance of increased activity levels, but not pushing into SOB or high fatigue levels due to deconditioning and PMH of COPD . She responded well to stretching and strengthening exercises with decreased neck pain and improved ROM following. She will benefit greatly from continued skilled therapy to address these limitations. Primary Functional Limitations Lifting above shoulder height, lifting her dog, reaching, driving, turning her head, sleeping. Plan of Care Rehabilitation Potential Excellent Physical Therapy Goals Short term goals to be completed in 4 weeks: 1. Pt will report improved quality of sleep waking <2x per night due to neck and B shoulder pain for >2 consecutive nights. 2. Pt will display >50% improvement in I sitting posture for >1 consecutive PT visit to decrease strain on B CS and TS musculature. Long-term goals to be completed in 10 weeks: 1.Pt will be independent and compliant with HEP 2.Pt will display improved B shoulder ER, mid and low trap strength >/= 4+/5 to improve tolerance to lifting objects into overhead cabinets. 3.Pt will display improved neck rotation bilateral to WFL to improve safety with driving. 4.Pt will report >50% improvement in NDI questionnaire to significantly improve veronica to daily activities. Coordination/Communication With Referral Source Treatment Plan/Direct Interventions Joint Mobilization,Manual Therapy,Therapeutic Exercises Frequency/Duration 1x per week for at least 6-10 visits, decreasing visit frequency as able. Patient Will Be Discharged From Therapy Completion of LTG(s),Skills Plateau,Independent w/HEP, Independently Progressing Evaluation Billing Untimed Code Treatment Minutes 25 Complexity Moderate Certification Information Initial Certification Date 08/06/24 Ending Certification Date 11/04/24 Provider Signature Required Yes Provider Signature Shows Agreement With POC & Medical Necessity Physician NPI Number Write NPI# Here Physician Comment/Change : Physician Signature & Date Requested Please Sign/Date Here
== END 2025-02-27 23:59 | disposition home or self-care (01) ==
PROVIDERS: PCP Family Medicine; Visit Provider Family Medicine
DX: M54.2 Cervicalgia (principal); Z51.89 Encounter for other specified aftercare
CPT/HCPCS: 97110; 97140; 97162

== ENCOUNTER 2024-11-05 07:44 | Outpatient (CLI) | payer MEDICARE, OTHER, SELFPAY | END 2024-11-05 07:45 | disposition home or self-care (01) | PROVIDERS: PCP Family Medicine; Referring Provider Family Medicine; Visit Provider Family Medicine | DX: E21.3 Hyperparathyroidism, unspecified (principal); E78.5 Hyperlipidemia, unspecified | CPT/HCPCS: 80053; 80061; 83970 ==

== ENCOUNTER 2024-11-14 14:52 | Outpatient (CLI) | payer MEDICARE, OTHER, SELFPAY | END 2024-11-14 14:53 | disposition home or self-care (01) | LOC: NFLDREF 11-18 02:18 | PROVIDERS: PCP Family Medicine; Referring Provider Family Medicine | DX: R30.0 Dysuria (principal); N30.90 Cystitis, unspecified without hematuria | CPT/HCPCS: 87086 ==

== ENCOUNTER 2025-04-02 09:26 | Outpatient (CLI) | payer MEDICARE, OTHER, SELFPAY | END 2025-04-02 09:27 | disposition home or self-care (01) | LOC: NFLDREF 09:27 | PROVIDERS: PCP Family Medicine; Visit Provider Family Medicine | DX: E83.52 Hypercalcemia (principal) | CPT/HCPCS: 80048 ==

== ENCOUNTER 2025-05-01 07:35 | Outpatient (CLI) | payer MEDICARE, OTHER, SELFPAY | END 2025-05-01 07:36 | disposition home or self-care (01) | LOC: NFLDREF 05-03 10:26 | PROVIDERS: PCP Family Medicine; Referring Provider Family Medicine; Visit Provider Family Medicine | DX: E78.5 Hyperlipidemia, unspecified (principal); R79.89 Other specified abnormal findings of blood chemistry; E21.3 Hyperparathyroidism, unspecified; E55.9 Vitamin D deficiency, unspecified | CPT/HCPCS: 80053; 80061; 82306; 83970 ==